=== PATIENT | male | born 1960 | race Caucasian/White ===

== ENCOUNTER 2016-08-04 14:05 | Emergency (ER) | payer OTHER ==
[~2016-08-04] VITALS: Ht 200.7 cm; Wt 121.0 kg
[2016-08-04 14:13] VITALS: BP 137/92; PULSE 97; RESP 18; O2SAT 97
--- NOTE | 2016-08-04 15:25 | ED.REPORT ---
HPI-General Illness Date of Service Aug 04, 2016 ED Provider: Greg Douglass MD Patient is a 56 year old male with a history of heroin, meth and methadone use who presents to the ED complaining of intermittent lower extremity swelling for that past year but has been more constant for the past six months. Associated symptoms include leg muscle soreness. He denies fever. Nursing Notes Stated Complaint: POSSIBLE EDEMA Chief Complaint: General Complaint Nursing Notes Reviewed: Yes Allergies: Coded Allergies: No Known Allergies (Unverified , 08/04/16) General Time Seen by MD: 15:21 Chief Complaint Other (leg swelling) Hx Obtained From: Patient Arrived By: Walk-in Sudden in Onset?: No Onset Occurred: More than a week ago... (>6 months) Symptom Duration: Intermittent Location: : Leg left: Leg right Recent Healthcare: No recent doctor visit, No recent hospitalization Similar Sx Previous: Yes Past Medical History Past Medical History Hep C Past Surgical History 2x back surgery knee surgery Smoking History Current Every Day Smoker Social History actively using injection drugs, using heroin now and on methadone Drug Use: IV drugs, Meth, Other (heroin) Other Social History: From out of town Ambulatory Status Independent Review of Systems muscle soreness Full Review of Systems Constitutional: Denies: Fever Musculoskeletal: Reports: Extremity swelling (both legs) Physical Exam Vital Signs Vital Signs Date Time Temp Pulse Resp B/P Pulse Ox O2 Delivery O2 Flow Rate FiO2 08/04/16 14:13 36.2 97 18 137/92 97 Room Air Initial VS: Reviewed General/Constitutional: Awake, Alert, No acute distress Head / Eyes: Atraumatic, Normocephalic, PERRL, EOMI Neck: Atraumatic, Supple, No JVD Respiratory / Chest: Atraumatic, Breath sounds NL, Breath sounds = bilat, No respiratory distress Cardiovascular: Heart rate NL, Regular rhythm, Heart sounds NL, No murmurs RUQ tenderness Back: Atraumatic, Full range of motion Upper Extremities Upper Extremity / MS: Atraumatic, Full range of motion Lower Extremity / Pelvis / MS: Neurologic intact, Vascular intact trace pedal edema Skin: Atraumatic, Color NL, No rash, Warm, Dry Neurologic: Oriented X3, Speech NL, No motor deficits, No sensory deficits Psychiatric: Affect NL, Mood NL Re-Eval/Medical Decision Med Decision/Clinical Course Bilat LE edema, planned to eval for DVT and get basic labs given history of injection drug use and hep C. Patient elected not to stay for evaluation. Given long duration of symptoms, this presentation seems low risk, pt plans to establish primary care locally. Source of Hx: Old records Discharge & Departure Primary Impression: Bilateral lower extremity edema Disposition: AGAINST MEDICAL ADVICE Discharge Condition All VS Reviewed: Yes Condition: Stable Referrals: NOPCP (PCP) Scribe Attestation Portions of this note were transcribed by Marialuisa White. I, Dr. Douglass personally performed the history, physical exam and medical decision-making; I reviewed and confirmed the accuracy of the information in the transcribed note. Signed by: Christa Villafuerte, 4. and 1653. Greg Douglass MD Aug 04, 2016 15:25 Melany White Aug 04, 2016 16:22
== END 2016-08-04 16:20 | disposition left against medical advice (07) ==
LOC: SED 14:05
DX: R60.0 Localized edema (principal); F17.200 Nicotine dependence, unspecified, uncomplicated